=== PATIENT | female | born 1940 | race Caucasian/White ===

== ENCOUNTER 2016-11-19 13:50 | Inpatient (IN) | END 2016-12-01 16:25 | disposition home health service (06) | DRG 857 | LOC: MEDSUR → PREINTOOBSV 15:01 → PREOBSVTOIN 15:01 → PREINTOOBSV 15:03 → PREOBSVTOIN 15:03 → PREINTOOBSV 15:11 → SUATTDRO 11-20 10:37 | PROVIDERS: ADMIT Internal Medicine; ATTEND Internal Medicine | PROC: IDWOUND (2016-11-20 15:40) ==